=== PATIENT | male | born 1955 | race Caucasian/White ===

== ENCOUNTER 2018-10-14 03:16 | Emergency (ER) | payer OTHER ==
[2018-10-14 03:27] VITALS: BP 134/88; PULSE 64; TEMP 98.2; BMI 27.9
[2018-10-14 03:49] LABS: BASO % 0.5 % (0-2.0); EOS % 1.4 % (0-4.5); HEMATOCRIT 45.8 % (35.4-49); HEMOGLOBIN 16.5 GM/dL (11.7-16.9); LYMPH % 23.1 % (8-40); MEAN CELL VOLUME 86.2 fl (80-96); MONO % 8.9 % (3.8-10.2); NEUT % 66.1 % (42.8-82.8); PLATELET COUNT 154 K/MM3 (134-434); RBC 5.32 M/mm3 (4.00-5.60); RDW 13.6 % (11.9-15.9); WHITE BLOOD COUNT 5.2 K/mm3 (4.0-10.0)
--- NOTE | 2018-10-14 03:49 | PDOC ---
History of Present Illness - General Chief Complaint: Psychiatric Stated Complaint: ANXIETY Time Seen by Provider: 10/14/18 03:18 History Source: Patient Exam Limitations: No Limitations - History of Present Illness Initial Comments: 10/14/18 03:44 Pt is a 62yo M with PMH of HTN presenting to ED with complaint of SOB, anxiety that woke him up from sleep. He states at the time he felt like he could not breathe, felt nauseous and slightly lightheaded. He was pacing in his room but it did not help so he called EMS. Pt states that he had similar episodes in the past but it was not as bad as today. Right now pt states he feels fine. He denied chest pain, palpitations, syncope, vomiting, cough, changes in vision, headache during the episode. He denies recent travel, recent surgery, leg swelling, cardiac problems in the family. Pt is not having active complaints at this time. Denies smoking, cocaine use, illicit drug use, caffeine use. PMD: Sorto PMH: HTN PSH: none Meds: amlodipine Allergies: nkda Social: denies Past History - Past Medical History Allergies/Adverse Reactions: Allergies Allergy/AdvReac Type Severity Reaction Status Date / Time No Known Allergies Allergy Verified 10/14/18 03:26 Home Medications: Ambulatory Orders Ondansetron [Zofran -] 4 mg PO TID #14 tablet 03/24/15 - Suicide/Smoking/Psychosocial Hx Smoking History: Never smoked Have you smoked in the past 12 months: No Information on smoking cessation initiated: No Hx Alcohol Use: No Drug/Substance Use Hx: No Review of Systems - Review of Systems Constitutional: No: Chills, Fever HEENTM: No: Blurred Vision, Double Vision Respiratory: No: Cough, Shortness of Breath Cardiac (ROS): No: Chest Pain, Lightheadedness, Palpitations, Syncope ABD/GI: No: Constipated, Diarrhea, Nausea, Vomiting, Abdominal cramping : No: Symptoms Reported Musculoskeletal: No: Back Pain, Muscle Pain, Neck Pain Integumentary: No: Symptoms Reported Neurological: No: Headache, Numbness, Tremors, Weakness *Physical Exam - Vital Signs Last Vital Signs Temp Pulse Resp BP Pulse Ox 98.2 F 64 18 134/88 97 10/14/18 03:26 10/14/18 03:26 10/14/18 03:26 10/14/18 03:26 10/14/18 03:26 - Physical Exam General Appearance: Yes: Nourished, Appropriately Dressed. No: Apparent Distress HEENT: positive: EOMI, KENYA, Normal ENT Inspection Neck: positive: Trachea midline, Supple Respiratory/Chest: positive: Lungs Clear, Normal Breath Sounds Cardiovascular: positive: Regular Rhythm, Regular Rate. negative: S1, S2, Edema , JVD, Murmur Vascular Pulses: Carotid (R): 2+, Carotid (L): 2+, Dorsalis-Pedis (R): 2+, Doralis-Pedis (L): 2+ Gastrointestinal/Abdominal: positive: Normal Bowel Sounds, Soft. negative: Tender Musculoskeletal: negative: CVA Tenderness Extremity: positive: Normal Capillary Refill. negative: Pedal Edema, Swelling Integumentary: positive: Normal Color, Dry, Warm Neurologic: positive: computer security coordinator II-XII NML intact, Fully Oriented, Alert, Normal Mood/ Affect, Normal Response, Motor Strength 5/5 Moderate Sedation - Procedure Monitoring Vital Signs: Procedure Monitoring Vital Signs Temperature 98.2 F 10/14/18 03:26 Pulse Rate 64 10/14/18 03:26 Respiratory Rate 18 10/14/18 03:26 Blood Pressure 134/88 10/14/18 03:26 O2 Sat by Pulse Oximetry (%) 97 10/14/18 03:26 ED Treatment Course - LABORATORY CBC & Chemistry Diagram: 10/14/18 03:34 10/14/18 03:34 Medical Decision Making - Medical Decision Making 10/14/18 03:48 Pt is a 62yo M with PMH of HTN presenting to ED with complaint of SOB, anxiety that woke him up from sleep. He states at the time he felt like he could not breathe, felt nauseous and slightly lightheaded. He was pacing in his room but it did not help so he called EMS. Pt states that he had similar episodes in the past but it was not as bad as today. Right now pt states he feels fine. He denied chest pain, syncope, vomiting, cough, changes in vision, headache during the episode. He denies recent travel, recent surgery, leg swelling, cardiac problems in the family. Pt is not having active complaints at this time. Denies smoking, cocaine use, illicit drug use, caffeine use. Vitals: wnl PE: normal EMS called with normal vitals. Pt not tachycardic. -cbc, cmp, trop, tsh -ekg 10/14/18 04:34 labs wnl. EKG shows nsr. no katelynn or depressions. Pt not s ymptomatic. Will DC home. Given return precautions. *DC/Admit/Observation/Transfer Diagnosis at time of Disposition: SOB (shortness of breath), Anxiety - Discharge Dispostion Disposition: HOME Condition at time of disposition: Good Decision to Admit order: No - Referrals Referrals: Jovani Sorto MD [Non Staff, Medical] - - Patient Instructions Printed Discharge Instructions: DI for Shortness of Breath, DI for Anxiety -- Adult Additional Instructions: You were seen in the emergency room today for shortness of breath and anxiety like sensation. I do not know the exact cause but the EKG and blood work is normal. I recommend that you make an appointment with your doctor in the next few days and discuss this feeling. You may need further testing or medications. Come back to the emergency room if you feel anxious again, have chest pain, pass out, have difficulty breathing or if any new concerning symptom develops. Thank you - Post Discharge Activity
--- NOTE | 2018-10-14 04:17 | PDOC ---
Attending Attestation - Resident Resident Name: Jillian Baca - ED Attending Attestation I have performed the following: I have examined & evaluated the patient, The case was reviewed & discussed with the resident, I agree w/resident's findings & plan, Exceptions are as noted
[2018-10-14 04:24] LABS: ALK PHOS 63 U/L (45-117); ANION GAP 7 MMOL/L (8-16); BILIRUBIN,TOTAL 0.6 mg/dL (0.2-1); BLOOD UREA NITROGEN 11 mg/dL (7-18); CALCIUM 8.9 mg/dL (8.5-10.1); CHLORIDE 105 mmol/L (98-107); CO2 25 mmol/L (21-32); GLUCOSE,RANDOM 97 mg/dL (74-106); POTASSIUM 3.7 mmol/L (3.5-5.1); SGOT/AST 28 U/L (15-37); SGPT/ALT 50 U/L (13-61); SODIUM 137 mmol/L (136-145); TOT PROT 7.3 g/dl (6.4-8.2)
--- NOTE | 2018-10-14 04:50 | PDOC ---
Attending Attestation - Resident Resident Name: Jillian Baca - ED Attending Attestation I have performed the following: I have examined & evaluated the patient, The case was reviewed & discussed with the resident, I agree w/resident's findings & plan, Exceptions are as noted - HPI HPI: 10/14/18 04:51 62M pmh of HTN started on amlodipine several days ago here with sudden onset of intense anxiety, SOB, shakiness. Pt states he has episodes like this in the past but not as intense. As episode progressed he became tachypneic, nauseous and lightheaded. Symptoms started improving spontaneously once EMS arrived and he was asymptomatic on initial encounter. - Physicial Exam PE: 10/14/18 04:54 Agree with exam as documented by resident - Medical Decision Making 10/14/18 04:54 Patient presents with what appears consistent with a panic/anxiety attack. ACS unlikely, consider electrolyte or thyroid derangement, PE unlikley labs unremarkable Asymptomatic DC with pcp f/u
--- NOTE | 2018-10-14 10:51 | EKG ---
Test Reason : Blood Pressure : / mmHG Vent. Rate : 065 BPM Atrial Rate : 065 BPM P-R Int : 138 ms QRS Dur : 092 ms QT Int : 430 ms P-R-T Axes : 042 017 044 degrees QTc Int : 447 ms NORMAL SINUS RHYTHM NORMAL ECG NO PREVIOUS ECGS AVAILABLE Confirmed by FLORI LOPEZ MD ([id number]) on 10/14/2018 10:50:46 AM Referred By: Confirmed By:FLORI LOPEZ MD
== END 2018-10-14 05:21 | disposition home or self-care (01) ==
LOC: JER 03:16
DX: R06.02 Shortness of breath (principal); F41.9 Anxiety disorder, unspecified; I10 Essential (primary) hypertension
CPT/HCPCS: 36415; 80053; 84443; 84484; 85025; 93005; 93010; 99281-25

== ENCOUNTER 2023-11-27 08:43 | Emergency (ER) | payer OTHER ==
[2023-11-27 08:59] VITALS: BP 164/71; PULSE 76; RESP 18; TEMP 98; BMI 27.9
[2023-11-27] MEDS ORDERED: KETOROLAC TROMETHAMINE 15 MG/ML VIAL ONE (09:44)
[2023-11-27] MEDS ORDERED: COLCHICINE 0.6 MG TAB ONE ×2 (09:49→11:58)
[2023-11-27] MEDS: COLCHICINE 0.6 MG TAB PO ONE ×2 (09:51→12:00)
[2023-11-27] MEDS: KETOROLAC TROMETHAMINE 15 MG/ML VIAL IM ONE (09:51)
== END 2023-11-27 12:14 | disposition home or self-care (01) ==
LOC: JER 08:43
PROC: 3E0233Z Introduction of Anti-inflammatory into Muscle, Percutaneous Approach (ICD-10-PCS; principal; 2023-11-27)
DX: M10.9 Gout, unspecified (principal)
CPT/HCPCS: 73660-TC-LT-FY; 96372; 99284-25

== ENCOUNTER 2024-01-30 19:44 | Emergency (ER) | payer OTHER ==
[2024-01-30 20:02] VITALS: RESP 18; TEMP 98.3; BMI 27.9
[2024-01-30 20:25] LABS: BASO % 0.7 % (0-2.0); HEMATOCRIT 42.9 % (35.4-49); LYMPH % 25.3 % (8-40); MCH 30.1 pg (25.7-33.7); MEAN CELL VOLUME 86.1 fl (80-96); MEAN PLT VOLUME 7.7 fl (7.5-11.1); MONO % 11.4 % (3.8-10.2); NEUT % 60.6 % (42.8-82.8); PLATELET COUNT 150 10^3/uL (134-434); RBC 4.98 M/mm3 (4.00-5.60); RDW 13.8 % (11.9-15.9); WHITE BLOOD COUNT 5.6 K/mm3 (4.0-10.0)
[2024-01-30] MEDS ORDERED: ONDANSETRON 4 MG/2 ML VIAL ONE (20:25)
[2024-01-30] MEDS ORDERED: ACETAMINOPHEN INJECTION 100 ML IVPB ONE (20:25)
[2024-01-30 20:29] LABS: INR 0.96 (0.83-1.09)
[2024-01-30] MEDS: LACTATED RINGERS SOLUTION 1000 ML INFUS.BAG IV ONE (20:30)
[2024-01-30] MEDS: ACETAMINOPHEN 1000 MG/100 ML BAG IVPB ONE (20:30)
[2024-01-30] MEDS: ONDANSETRON 4 MG/2 ML VIAL IVPUSH ONE (20:30)
[2024-01-30 20:32] LABS: ACTIVATED PTT 27.6 SECONDS (25.2-36.5)
[2024-01-30 20:43] LABS: POTASSIUM 3.6 mmol/L (3.5-5.1); SODIUM 139 mmol/L (136-145)
[2024-01-30 21:54] VITALS: BP 115/84; PULSE 66
[2024-01-30 22:06] LABS: ALBUMIN 3.7 g/dl (3.4-5.0); ALK PHOS 80 U/L (45-117); ANION GAP 8 mmol/L (4-13); BILIRUBIN,TOTAL 0.4 mg/dL (0.2-1); BLOOD UREA NITROGEN 21.5 mg/dL (7-18); CALCIUM 8.9 mg/dL (8.5-10.1); CHLORIDE 105 mmol/L (98-107); CO2 27 mmol/L (21-32); CREATININE 1.2 mg/dL (0.55-1.3); GLUCOSE,RANDOM 130 mg/dL (74-106); MAGNESIUM 1.8 mg/dL (1.8-2.4); PHOSPHOROUS 3.6 mg/dL (2.5-4.9); SGOT/AST 18 U/L (15-37); SGPT/ALT 28 U/L (13-61)
== END 2024-01-30 22:33 | disposition home or self-care (01) ==
LOC: JER 19:44
PROC: 3E033NZ Introduction of Analgesics, Hypnotics, Sedatives into Peripheral Vein, Percutaneous Approach (ICD-10-PCS; principal; 2024-01-30)
PROC: 3E033GC Introduction of Other Therapeutic Substance into Peripheral Vein, Percutaneous Approach (ICD-10-PCS; 2024-01-30)
DX: U07.1 COVID-19 (principal); R55 Syncope and collapse; M79.10 Myalgia, unspecified site; R53.1 Weakness; R05.9 Cough, unspecified; R51.9 Headache, unspecified
CPT/HCPCS: 0241U-QW; 36415; 71045-TC-FY; 80053; 82550; 82553; 83735; 84100; 84484; 85025; 85610; 85730; 86850; 86900; 86901; 93005; 93010; 96374; 96375; 99285-25; J0131